=== PATIENT | female | born 1975 | race African-American/Black ===

== ENCOUNTER 2019-09-30 13:34 | Emergency (ER) | payer SELFPAY ==
[~2019-09-30] VITALS: Ht 167.6 cm; Wt 95.0 kg
[2019-09-30] MEDS ORDERED: IBUPROFEN 600MG TABLET PO ONE (15:30)
[2019-09-30 16:38] VITALS: BP 137/82
== END 2019-09-30 16:41 | disposition home or self-care (01) ==
LOC: ER 13:42
DX: J02.9 Acute pharyngitis, unspecified (principal)
CPT/HCPCS: 87070; 87430; 99283

== ENCOUNTER 2020-12-24 23:38 | Emergency (ER) | payer MEDICAID, OTHER ==
[~2020-12-24] VITALS: Ht 167.6 cm; Wt 86.0 kg
[2020-12-24 23:41] VITALS: BP 188/78
[2020-12-25] MEDS ORDERED: ACETAMINOPHEN 325MG TABLET PO ONE (00:30)
[2020-12-25] MEDS ORDERED: BACITRACIN ZINC OINT UDPKT TOP ONE (00:30)
[2020-12-25] MEDS ORDERED: TETANUS, DIPHTHERIA, PERTUSSIS VAC/PF 0.5ML (>7YR OLD) IM ONE (00:30)
[2020-12-25] MEDS ORDERED: BO1 TP (03:05)
== END 2020-12-25 03:22 | disposition home or self-care (01) ==
LOC: ER 23:38
DX: S91.132A Puncture wound without foreign body of left great toe without damage to nail, initial encounter (principal); I10 Essential (primary) hypertension; E03.9 Hypothyroidism, unspecified; Z79.899 Other long term (current) drug therapy; Z98.890 Other specified postprocedural states; W22.8XXA Striking against or struck by other objects, initial encounter; Y93.01 Activity, walking, marching and hiking; Y92.89 Other specified places as the place of occurrence of the external cause; Y99.8 Other external cause status
CPT/HCPCS: 73630; 81025; 90471; 90715; 99283